=== PATIENT | male | born 1975 | race African-American/Black ===

== ENCOUNTER 2021-08-29 19:03 | Emergency (ER) | payer MEDICAID ==
[~2021-08-29] VITALS: Ht 190.5 cm; Wt 90.9 kg
[2021-08-29 19:04] VITALS: BP 103/55
[2021-08-29] MEDS ORDERED: TRAZ-257 PO (19:12)
[2021-08-29] MEDS ORDERED: FING0.5C3 PO (19:12)
[2021-08-29] MEDS ORDERED: AMAN-24 PO (19:12)
[2021-08-29] MEDS ORDERED: GABA-1181 PO (19:12)
[2021-08-29] MEDS ORDERED: MEMA10TA55 PO (19:12)
[2021-08-29] MEDS ORDERED: BRIM15DR8 OU (19:12)
[2021-08-29] MEDS ORDERED: TIMO5DRO35 OU (19:12)
[2021-08-29 19:44] LABS: BASOPHILS % (AUTO) 0.4 % (0.0-2.0); EOSINOPHILS % (AUTO) 0.5 % (1.0-6.0); HEMATOCRIT 43.1 % (41-53); HEMOGLOBIN 14.5 g/dL (13.5-17.5); LYMPHOCYTES # (AUTO) 0.2 K/uL (1.0-4.8); LYMPHOCYTES % (AUTO) 5.7 % (22.0-44.0); MEAN CORPUSCULAR HEMOGLOBIN 29.8 pg (26.0-34.0); MEAN CORPUSCULAR HGB CONC 33.6 G/dL (31.0-37.0); MEAN CORPUSCULAR VOLUME 89 fL (80-100); MONOCYTES # (AUTO) 0.5 K/uL (0.1-1.0); NEUTROPHILS # (AUTO) 2.8 K/uL (1.8-7.7); NEUTROPHILS % (AUTO) 78.4 % (40.0-70.0); PLATELET COUNT (AUTO) 124 K/uL (150-450); RED BLOOD CELL COUNT(AUTO) 4.86 MIL/uL (4.50-5.90); RED CELL DISTRIBUTION WIDTH 13.5 % (11.5-14.5)
== END 2021-08-29 20:04 | disposition home or self-care (01) ==
LOC: EMS 19:03
DX: U07.1 COVID-19 (principal); H40.9 Unspecified glaucoma; G35 Multiple sclerosis
CPT/HCPCS: 85025; 99283

== ENCOUNTER 2022-03-04 18:27 | Emergency (ER) | payer MEDICAID ==
[~2022-03-04] VITALS: Ht 190.5 cm; Wt 84.1 kg
[~2022-03-04 18:27] MED LIST: AMAN-24 PO; BRIM15DR8 OU; FING0.5C3 PO; GABA-1181 PO; MEMA10TA55 PO; TIMO5DRO35 OU; TRAZ-257 PO
[2022-03-04] MEDS ORDERED: IBUPROFEN 600 MG TABLET PO ONE (19:30)
[2022-03-04] MEDS ORDERED: ACETAMINOPHEN 500 MG TABLET PO ONE (19:30)
[2022-03-04 22:39] VITALS: BP 125/60
== END 2022-03-04 22:46 | disposition home or self-care (01) ==
LOC: EMS 18:29
DX: S92.515A Nondisplaced fracture of proximal phalanx of left lesser toe(s), initial encounter for closed fracture (principal); F10.20 Alcohol dependence, uncomplicated; X58.XXXA Exposure to other specified factors, initial encounter; Y93.89 Activity, other specified; Y92.89 Other specified places as the place of occurrence of the external cause; Y99.8 Other external cause status
CPT/HCPCS: 99283